=== PATIENT | male | born 1960 ===

== ENCOUNTER 2020-09-13 16:51 | Inpatient (IN) ==
[2020-09-13] MEDS ORDERED: Ondansetron ODT 4 MG TAB.RAPDIS SL PRN (23:07)
[2020-09-13] MEDS ORDERED: Naloxone 0.4 MG/ML INJ IVP PRN (23:07)
[2020-09-13] MEDS ORDERED: Perflutren Lipid Microsphere 1.3 ML in 0.9 % Sodium Chloride 8.7 ML IVP PRN (23:10)
[2020-09-13] MEDS ORDERED: Ipratropium/Albuterol Neb 3 ML IH PRN (23:16)
[2020-09-13] MEDS ORDERED: Dextrose Gel 15 GM/37.5 ML TUBE PO PRN ×2 (23:19)
[2020-09-13] MEDS ORDERED: *HR* Dextrose 50 % in Water (Vial) 50 ML VIAL IVP PRN (23:19)
[2020-09-13] MEDS ORDERED: D5% in Water 1,000 ML IVC PRN (23:19)
[2020-09-14] MEDS: Insulin LISPRO 300 UNITS/3 ML VIAL SUBQ SCH ×4 (00:46→16:25)
[2020-09-14 05:42] LABS: Bilirubin,Urine Negative (Negative); Blood,Urine Negative (Negative); Clarity,Urine Clear (Clear); Color,Urine Light-Yellow (Yellow); Glucose,Urine (UA) 30 mg/dL (Normal); Hyaline Casts,Urine Few per lpf (None Seen); Ketones,Urine Negative (Negative); Leukocyte Esterase,Urine Negative (Negative); Mucus,Urine Few per lpf (None-Few); Nitrite,Urine Negative (Negative); Protein,Urine Negative (Neg-Trace); RBC,Urine 0-3 per hpf (0-3); Urobilinogen,Urine Normal (Normal); WBC,Urine 0-3 per hpf (0-3)
[2020-09-14 05:44] LABS: Amphetamine Screen,Urine Negative ng/mL (Cutoff=1000); Barbiturate Screen,Urine Negative ng/mL (Cutoff=200); Benzodiazepines Screen,Urine Negative ng/mL (Cutoff=200); Cannabinoid Screen,Urine Negative ng/mL (Cutoff = 50); Cocaine Screen,Urine Negative ng/mL (Cutoff= 300); Opiate Screen,Urine Negative ng/mL (Cutoff=300); Phencyclidine Screen,Urine Negative ng/mL (Cutoff=25)
[2020-09-14 08:24] LABS: Basophils % 0.5 %; Eosinophils # 0.2 K/mcL (0.0-0.6); Eosinophils % 2.7 %; Hematocrit 40.3 % (37.5-50.1); Hemoglobin 13.3 g/dL (12.9-16.9); Immature Granulocytes % 0.4 % (0-4); Lymphocytes # 1.6 K/mcL (0.6-4.6); Lymphocytes % 19.3 %; Mean Corpuscular Hemoglobin 30.9 pg (28.0-33.3); Mean Corpuscular Volume 93.5 fL (83.0-100.0); Mean Platelet Volume 10.9 fL (9.4-12.4); Monocytes # 0.6 K/mcL (0.0-1.3); Neutrophils # 5.6 K/mcL (1.6-8.9); Platelet Count 150 K/mcL (140-400); Red Blood Count 4.31 M/mcL (4.19-5.50); Red Cell Distribution Width 12.1 % (11.5-14.5); Segmented Neutrophils % 70.1 %
[2020-09-14 08:31] LABS: Prothrombin Time 12.1 Seconds (9.4-12.1)
[2020-09-14 08:59] LABS: Alanine Aminotransferase 17 Units/L (7-52); Albumin/Globulin Ratio 1.3 (1.1-2.2); Alkaline Phosphatase 95 Units/L (34-104); Aspartate Amino Transferase 13 Units/L (13-39); BUN/Creatinine Ratio 11 (6-26); Bilirubin,Total 0.6 mg/dL (0.3-1.0); Blood Urea Nitrogen 8 mg/dL (6-20); Calcium 9.4 mg/dL (8.6-10.3); Carbon Dioxide 24 mEq/L (23-29); Chloride 105 mEq/L (98-107); Cholesterol 188 mg/dL (< 200); Glucose 117 mg/dL (70-105); HDL Cholesterol 27 mg/dL (40-59); LDL Cholesterol,Calculated 108 mg/dL (< 100); Magnesium 1.9 mg/dL (1.6-2.6); Osmolality,Calculated 285 (280-300); Potassium 4.2 mEq/L (3.5-5.1); Sodium 138 mEq/L (136-145); Thyroid Stimulating Hormone 0.553 mcIU/mL (0.340-5.600); Triglycerides 267 mg/dL (< 150); Troponin I < 0.03 ng/mL (< 0.04); eGFR For African Americans > 60 (> 60); eGFR For Non-African Americans > 60 (> 60)
[2020-09-14] MEDS ORDERED: *HR* Enoxaparin 40 MG/0.4 ML SYRINGE SQ SCH (09:00)
[2020-09-14 11:39] LABS: Estimated Average Glucose 157 mg/dl; Hemoglobin A1C 7.1 %
[2020-09-14] MEDS: Acetaminophen 325 MG TABLET PO PRN (12:32)
[2020-09-14] MEDS ORDERED: Aspirin 325 MG TABLET PO ONE (13:49)
[2020-09-14] MEDS ORDERED: lisinopriL 5 MG TABLET PO SCH (14:00)
[2020-09-14] MEDS: carvediloL 6.25 MG TABLET PO SCH (16:26)
[2020-09-14] MEDS: *HR* OxyCODONE/APAP 5/325 TABLET PO PRN (16:43)
[2020-09-14] MEDS ORDERED: rOPINIRole 1 MG TABLET PO SCH (21:00)
[2020-09-15] MEDS: *HR* OxyCODONE/APAP 5/325 TABLET PO PRN ×3 (00:07→17:17)
[2020-09-15 02:15] LABS: Hematocrit 39.9 % (37.5-50.1); Hemoglobin 13.8 g/dL (12.9-16.9); Mean Corpuscular HGB Conc 34.6 g/dL (31.6-35.5); Mean Corpuscular Hemoglobin 31.8 pg (28.0-33.3); Mean Corpuscular Volume 91.9 fL (83.0-100.0); Platelet Count 151 K/mcL (140-400); Red Blood Count 4.34 M/mcL (4.19-5.50); Red Cell Distribution Width 11.9 % (11.5-14.5)
[2020-09-15 02:37] LABS: BUN/Creatinine Ratio 14 (6-26); Blood Urea Nitrogen 11 mg/dL (6-20); Calcium 9.1 mg/dL (8.6-10.3); Carbon Dioxide 25 mEq/L (23-29); Chloride 106 mEq/L (98-107); Glucose 117 mg/dL (70-105); Osmolality,Calculated 286 (280-300); Potassium 4.1 mEq/L (3.5-5.1); Sodium 138 mEq/L (136-145); eGFR For African Americans > 60 (> 60); eGFR For Non-African Americans > 60 (> 60)
[2020-09-15] MEDS ORDERED: *HR* Enoxaparin 40 MG/0.4 ML SYRINGE SQ SCH (06:00)
[2020-09-15] MEDS: Insulin LISPRO 300 UNITS/3 ML VIAL SUBQ SCH ×3 (08:06→16:44)
[2020-09-15] MEDS: carvediloL 6.25 MG TABLET PO SCH (08:06)
[2020-09-15] MEDS ORDERED: amLODIPine 5 MG TABLET PO SCH (09:00)
[2020-09-15] MEDS ORDERED: Aspirin 81 MG TAB.CHEW PO SCH (09:00)
[2020-09-15] MEDS ORDERED: lisinopriL 20 MG TABLET PO SCH (09:00)
[2020-09-15] MEDS: Acetaminophen 325 MG TABLET PO PRN (13:39)
[2020-09-15 16:05] VITALS: BP 136/84; PULSE 97; TEMP 97.8; O2SAT 94
[2020-09-15] MEDS ORDERED: carvediloL 6.25 MG TABLET PO SCH (17:00)
== END 2020-09-15 19:40 | disposition home or self-care (01) | DRG 66 ==
LOC: 2ANU
PROVIDERS: ADMIT Pharmacist; ATTEND Pharmacist